=== PATIENT | male | born 1955 | race African-American/Black ===

== ENCOUNTER 2019-03-06 02:13 | Observation (INO) | payer BC ==
[2019-03-06 02:58] VITALS: BMI 25.5
--- NOTE | 2019-03-06 03:52 | PDOC ---
Attending Attestation - Resident Resident Name: ReyEverardo - ED Attending Attestation I have performed the following: I have examined & evaluated the patient, The case was reviewed & discussed with the resident, I agree w/resident's findings & plan - HPI HPI: 03/06/19 03:50 see resident hpi - Physicial Exam PE: 03/06/19 03:50 see with resident exam - Medical Decision Making 03/06/19 03:51 63-year-old male status post syncopal episode with collapse and fall while walking home from the [facility] Plan for labs, EKG Will admit for syncope evaluation
--- NOTE | 2019-03-06 03:53 | PDOC ---
History of Present Illness - General Chief Complaint: Injury Stated Complaint: FALL Time Seen by Provider: 03/06/19 03:50 History Source: Patient Exam Limitations: No Limitations - History of Present Illness Initial Comments: 03/06/19 07:43 63 yo M with a hx of Parkinson's Disease, HIV, and HTN presents to the emergency department s/p fall with LOC. Per the patient, he was walking in the parking lot at approximately 2 am after participating in activities [place] the local [place]. Per the patient, he felt his legs give way and remembered falling forward with LOC. Prior to his fall, he felt SOB but denies the following prodromal symptoms: palpitations, headache, nausea, vomiting, and lightheadedness. Upon re-awakening, the patient was on the ground and denies current pain. Allergies: NKDA Past History - Past Medical History Allergies/Adverse Reactions: Allergies Allergy/AdvReac Type Severity Reaction Status Date / Time No Known Allergies Allergy Verified 03/06/19 02:55 Home Medications: Ambulatory Orders Amantadine HCl [Symmetrel -] 100 mg PO BID 03/06/19 Bictegrav/Emtricit/Tenofov Ala [Biktarvy 50-200-25 mg Tablet] 1 each PO DAILY Carbidopa/Levodopa *Cr* 50/200 [Sinemet *Cr* 50/200 -] 1 combo PO QID 03/06/19 Carbidopa/Levodopa 25/100 [Sinemet 25/100 -] 1 each PO 5XD 03/06/19 Carvedilol [Coreg -] 12.5 mg PO BID 03/06/19 Vitamin B Complex 1 cap PO DAILY 03/06/19 - Psycho Social/Smoking Cessation Hx Smoking History: Never smoked Hx Alcohol Use: Yes Drug/Substance Use Hx: No Review of Systems - Review of Systems Able to Perform ROS?: Yes Is the patient limited Angolan proficient: No Constitutional: No: Chills, Diaphoresis, Fever, Weakness HEENTM: No: Eye Pain, Ear Pain, Nose Pain, Throat Pain, Mouth Pain Respiratory: No: Cough, Shortness of Breath, Hemoptysis Cardiac (ROS): Yes: Syncope. No: Chest Pain, Lightheadedness, Palpitations, Chest Tightness ABD/GI: No: Constipated, Diarrhea, Nausea, Rectal Bleeding, Vomiting, Tarry Stools : No: Burning, Dysuria, Hematuria Musculoskeletal: No: Back Pain, Joint Pain, Neck Pain Integumentary: No: Bruising, Erythema, Rash Neurological: Yes: Unsteady Gait (Parkinson's disease; chronic and uses a cane for ambulation assistance ). No: Headache, Seizure Psychiatric: No: Change in Appetite Endocrine: No: Unexplained Weight Loss Hematologic/Lymphatic: No: Anemia *Physical Exam - Vital Signs Last Vital Signs Temp Pulse Resp BP Pulse Ox 98.7 F 96 H 20 167/83 96 03/06/19 02:13 03/06/19 02:13 03/06/19 02:13 03/06/19 02:13 03/06/19 02:13 - Physical Exam General Appearance: Yes: Nourished, Appropriately Dressed. No: Apparent Distress, Alcohol on Breath, Intoxicated HEENT: positive: EOMI, NARENDRA, Normal Voice, Symmetrical, Pharynx Normal, Hearing Grossly Normal. negative: Pale Conjunctivae, Scleral Icterus (R), Scleral Icterus (L), Muffled/Hoarse voice, Pharyngeal Erythema, Tonsillar Exudate, Tonsillar Erythema, Excessive drooling Neck: positive: Trachea midline, Supple. negative: Tender, Lymphadenopathy (R) , Lymphadenopathy (L), Tender lateral, Tender midline Respiratory/Chest: positive: Lungs Clear, Normal Breath Sounds. negative: Chest Tender, Respiratory Distress, Accessory Muscle Use, Crackles, Rales, Rhonchi, Stridor, Wheezing Cardiovascular: positive: Regular Rhythm, Regular Rate, S1, S2. negative: Systolic Murmur Gastrointestinal/Abdominal: positive: Normal Bowel Sounds, Flat, Soft. negative : Tender, Distended, Guarding, Rebound Lymphatic: negative: Adenopathy Musculoskeletal: positive: Normal Inspection. negative: CVA Tenderness, Vertebral Tenderness Extremity: positive: Normal Capillary Refill, Normal Inspection. negative: Normal Range of Motion (patient has rigidity in the UE and LE bilaterally that can be elicited secondary to Parkinsons), Swelling, Calf Tenderness Integumentary: positive: Normal Color, Dry, Warm, Other (blisters noted on the LE bilaterally) Neurologic: positive: traffic observer II-XII NML intact, Fully Oriented, Alert, Normal Mood/ Affect, Normal Response, Motor Strength 5/5. negative: EOM Palsy, Facial Droop , Numbness, Sensory Deficit ED Treatment Course - LABORATORY CBC & Chemistry Diagram: 03/06/19 04:25 03/06/19 04:25 Medical Decision Making - Medical Decision Making 63 yo M with a hx of Parkinson's Disease, HIV, and HTN presents to the emergency department s/p fall with LOC. Per the patient, he was walking in the parking lot at approximately 2 am after participating in activities [place] [employer]. Initial vitals: Initial Vital Signs Temp Pulse Resp BP Pulse Ox 98.7 F 96 H 20 167/83 96 03/06/19 02:13 03/06/19 02:13 03/06/19 02:13 03/06/19 02:13 03/06/19 02:13 Work up: fall with syncope work up required. need to rule out cardiogenic vs metabolic vs infectious vs neurogenic Laboratory Tests 03/06/19 03/06/19 03/06/19 04:25 04:25 04:25 WBC 5.5 RBC 4.72 Hgb 15.5 Hct 44.2 MCV 93.6 MCH 32.8 MCHC 35.1 RDW 13.6 Plt Count 202 MPV 8.2 Absolute Neuts (auto) 3.8 Neutrophils % 68.9 Lymphocytes % 20.8 Monocytes % 9.3 Eosinophils % 0.4 Basophils % 0.6 Nucleated RBC % 0 Sodium 143 Cancelled Potassium 3.9 Cancelled Chloride 111 H Cancelled Carbon Dioxide 24 Cancelled Anion Gap 8 Cancelled BUN 14.7 Cancelled Creatinine 1.1 Cancelled Est GFR (CKD-EPI)AfAm 82.37 Cancelled Est GFR (CKD-EPI)NonAf 71.07 Cancelled Random Glucose 111 H Cancelled Calcium 9.2 Cancelled Magnesium 2.3 Cancelled Total Bilirubin 1.0 Cancelled AST 35 Cancelled ALT 53 Cancelled Alkaline Phosphatase 110 Cancelled Creatine Kinase 580 H Creatine Kinase Index 1.3 CK-MB (CK-2) 7.9 H Troponin I < 0.02 Total Protein 7.8 Cancelled Albumin 3.7 Cancelled TSH 0.82 Cancelled 03/06/19 03/06/19 04:25 04:25 WBC RBC Hgb Hct MCV MCH MCHC RDW Plt Count MPV Absolute Neuts (auto) Neutrophils % Lymphocytes % Monocytes % Eosinophils % Basophils % Nucleated RBC % Sodium Potassium Chloride Carbon Dioxide Anion Gap BUN Creatinine Est GFR (CKD-EPI)AfAm Est GFR (CKD-EPI)NonAf Random Glucose Calcium Magnesium Cancelled Total Bilirubin AST ALT Alkaline Phosphatase Creatine Kinase Creatine Kinase Index CK-MB (CK-2) Troponin I Total Protein Albumin TSH Cancelled labs within normal limits CXR within normal limits; no acute process appreciated Head CT and cervical spine CT negative for acute process per imaging director operations Patient was endorses to the hospitalist team and accepted for admission to tele obs for cardiac work up EKG: Negative for ST elevations or depression. Discharge - Discharge Information Problems reviewed: Yes Clinical Impression/Diagnosis: Syncope Condition: Fair - Follow up/Referral - Patient Discharge Instructions - Post Discharge Activity
[2019-03-06 04:49] LABS: BASO % 0.6 % (0-2.0); EOS % 0.4 % (0-4.5); HEMATOCRIT 44.2 % (35.4-49); HEMOGLOBIN 15.5 GM/dL (11.7-16.9); LYMPH % 20.8 % (8-40); MCH 32.8 pg (25.7-33.7); MCHC 35.1 g/dl (32.0-35.9); MEAN CELL VOLUME 93.6 fl (80-96); MEAN PLT VOLUME 8.2 fl (7.5-11.1); MONO % 9.3 % (3.8-10.2); NEUT % 68.9 % (42.8-82.8); PLATELET COUNT 202 K/MM3 (134-434); RBC 4.72 M/mm3 (4.00-5.60); RDW 13.6 % (11.9-15.9); WHITE BLOOD COUNT 5.5 K/mm3 (4.0-10.0)
[2019-03-06 05:28] LABS: ALBUMIN 3.7 g/dl (3.4-5.0); ALK PHOS 110 U/L (45-117); ANION GAP 8 MMOL/L (8-16); BLOOD UREA NITROGEN 14.7 mg/dL (7-18); CALCIUM 9.2 mg/dL (8.5-10.1); CHLORIDE 111 mmol/L (98-107); CO2 24 mmol/L (21-32); CREATININE 1.1 mg/dL (0.55-1.3); GLUCOSE,RANDOM 111 mg/dL (74-106); MAGNESIUM 2.3 mg/dL (1.8-2.4); POTASSIUM 3.9 mmol/L (3.5-5.1); SGOT/AST 35 U/L (15-37); SGPT/ALT 53 U/L (13-61); SODIUM 143 mmol/L (136-145); TOT PROT 7.8 g/dl (6.4-8.2)
[2019-03-06 08:17] LABS: PH,URINE 5.5 (5.0-8.0); URINE APPEARANCE CLEAR; URINE BILIRUBIN 1+ (NEGATIVE); URINE COLOR DK YELLOW; URINE GLUCOSE (UA) NEGATIVE (NEGATIVE); URINE KETONE 1+ (NEGATIVE); URINE LEUK ESTERASE NEGATIVE (NEGATIVE); URINE NITRITE NEGATIVE (NEGATIVE); URINE PROTEIN TRACE (NEGATIVE); URINE UROBILINOGEN 0.2 mg/dL (0.2-1.0)
--- NOTE | 2019-03-06 08:32 | PN ---
Teaching Attending Note Name of Resident: Cinthia Waddell ATTENDING PHYSICIAN STATEMENT I saw and evaluated the patient. I reviewed the resident's note and discussed the case with the resident. I agree with the resident's findings and plan as documented. SUBJECTIVE: OBJECTIVE: Vital Signs Temperature 98.7 F 03/06/19 02:13 Pulse Rate 96 H 03/06/19 02:13 Respiratory Rate 20 03/06/19 02:13 Blood Pressure 167/83 03/06/19 02:13 O2 Sat by Pulse Oximetry (%) 97 03/06/19 02:30 General: Middle-aged female, comfortable, not in distress HEENT; mucous membranes moist, no anemia, no jaundice, PERRLA, no nystagmus Neck: No JVD, supple, no bruit, thyroid palpably normal, normal carotid pulsations. Chest: Nontender, clear to auscultation bilaterally CVS: S1-S2 regular no murmur/gallop/rub Abdomen: Nondistended, soft, bowel sounds present. Extremities: No edema., No calf tenderness, pulses present IN STORE MARKETING REPRESENTATIVE: AO X3 , no gross motor sensory deficit CBC,CMP WBC 5.5 K/mm3 (4.0-10.0) 03/06/19 04:25 RBC 4.72 M/mm3 (4.00-5.60) 03/06/19 04:25 Hgb 15.5 GM/dL (11.7-16.9) 03/06/19 04:25 Hct 44.2 % (35.4-49) 03/06/19 04:25 MCV 93.6 fl (80-96) 03/06/19 04:25 MCH 32.8 pg (25.7-33.7) 03/06/19 04:25 MCHC 35.1 g/dl (32.0-35.9) 03/06/19 04:25 RDW 13.6 % (11.9-15.9) 03/06/19 04:25 Plt Count 202 K/MM3 (134-434) 03/06/19 04:25 MPV 8.2 fl (7.5-11.1) 03/06/19 04:25 Absolute Neuts (auto) 3.8 K/mm3 (1.5-8.0) 03/06/19 04:25 Neutrophils % 68.9 % (42.8-82.8) 03/06/19 04:25 Lymphocytes % 20.8 % (8-40) 03/06/19 04:25 Monocytes % 9.3 % (3.8-10.2) 03/06/19 04:25 Eosinophils % 0.4 % (0-4.5) 03/06/19 04:25 Basophils % 0.6 % (0-2.0) 03/06/19 04:25 Nucleated RBC % 0 % (0-0) 03/06/19 04:25 Sodium 143 mmol/L (136-145) 03/06/19 04:25 Potassium 3.9 mmol/L (3.5-5.1) 03/06/19 04:25 Chloride 111 mmol/L (98-107) H 03/06/19 04:25 Carbon Dioxide 24 mmol/L (21-32) 03/06/19 04:25 Anion Gap 8 MMOL/L (8-16) 03/06/19 04:25 BUN 14.7 mg/dL (7-18) 03/06/19 04:25 Creatinine 1.1 mg/dL (0.55-1.3) 03/06/19 04:25 Est GFR (CKD-EPI)AfAm 82.37 03/06/19 04:25 Est GFR (CKD-EPI)NonAf 71.07 03/06/19 04:25 Random Glucose 111 mg/dL (74-106) H 03/06/19 04:25 Calcium 9.2 mg/dL (8.5-10.1) 03/06/19 04:25 Magnesium 2.3 mg/dL (1.8-2.4) 03/06/19 04:25 Total Bilirubin 1.0 mg/dL (0.2-1) 03/06/19 04:25 AST 35 U/L (15-37) 03/06/19 04:25 ALT 53 U/L (13-61) 03/06/19 04:25 Alkaline Phosphatase 110 U/L (45-117) 03/06/19 04:25 Creatine Kinase 580 U/L (26-308) H 03/06/19 04:25 Creatine Kinase Index 1.3 % (0.0-5.0) 03/06/19 04:25 CK-MB (CK-2) 7.9 ng/mL (0.5-3.6) H 03/06/19 04:25 Troponin I < 0.02 ng/ml (0.00-0.05) 03/06/19 04:25 Total Protein 7.8 g/dl (6.4-8.2) 03/06/19 04:25 Albumin 3.7 g/dl (3.4-5.0) 03/06/19 04:25 TSH 0.82 uIU/ml (0.358-3.74) 03/06/19 04:25 EKG: Chest x-ray: CT C-spine: No acute fracture or subluxation CT head: No fracture and no acute intracranial changes. ASSESSMENT AND PLAN: 63 years old male history of HIV hypertension, Parkinson, walks with a cane, last night patient went to the kitchen around 2 AM he crossed A busy road to catch a taxi, walked with a fast pace , felt exhausted short of breath, developed weakness of lower extremity while turning left to gait ataxia and landed on the road, bystanders called 911 came to ED for evaluation, patient denies any chest pain, head trauma, seizure activity or incontinence, patient says this few months ago had similar situation when he was walking fast.. Impression: Presyncope/syncope Problem List - Problems (1) Syncope Assessment/Plan: Most likely due to autonomic insufficiency secondary to Parkinson, will observe on telemetry, echocardiogram if echo is abnormal will consider cardiology consult, PT evaluation. Orthostatic blood pressure Problems reviewed: Yes Code(s): R55 - SYNCOPE AND COLLAPSE (2) HIV (human immunodeficiency virus infection) Assessment/Plan: Resume all home medications Problems reviewed: Yes Code(s): B20 - HUMAN IMMUNODEFICIENCY VIRUS [HIV] DISEASE (3) Parkinson disease Assessment/Plan: Resume home medications Problems reviewed: Yes Code(s): G20 - PARKINSON'S DISEASE (4) Hypertension Assessment/Plan: Resume home medications Problems reviewed: Yes Code(s): I10 - ESSENTIAL (PRIMARY) HYPERTENSION
[2019-03-06] MEDS: SODIUM CHLORIDE 1,000 ML IV SCH (09:30)
[2019-03-06] MEDS ORDERED: AMANTADINE HCL 100 MG TABLET PO SCH (10:00)
[2019-03-06] MEDS ORDERED: CARBIDOPA/LEVODOPA 25/100 TABLET (FP) PO SCH (10:00)
[2019-03-06] MEDS ORDERED: CARVEDILOL 12.5 MG TABLET (FP) PO SCH (10:00)
[2019-03-06] MEDS ORDERED: BICTEGRAV/EMTRICIT/TENOFOV (BIKTARVY) 50-200-25 MG TABLET PO SCH (10:00)
[2019-03-06] MEDS ORDERED: HEPARIN NA (PORCINE) 5,000 UNITS/ML 1ML VIAL ONE (10:18)
[2019-03-06] MEDS: HEPARIN NA (PORCINE) 5,000 UNITS/ML 1ML VIAL SQ SCH ×2 (10:30→22:29)
--- NOTE | 2019-03-06 11:59 | HP ---
CHIEF COMPLAINT: fall HISTORY OF PRESENT ILLNESS: Charlene merino a 63 yo M with a PMHx of Parkinsons, HIV, presenting to the ED s/p fall. Patient says he was walking to his car at 2:30am [place] and felt his knees buckle, which caused him to fall. He said he already has a difficult time walking because of his Parkinsons and had to run across the highway yesterday to get to his car. As he was running, he said he took a turn to the left and felt his knees buckle. When he fell he said he blacked out. He said he had some shortness of breath before he fell because he was running. He said this never happened to him before. Patient denies headache, chest pain, nausea, vomiting, fevers, chills, dizziness, bladder or bowel incontinence ER course was notable for: (1) Head CT/C spine CT: unremarkable (2) CXR unremarkable Recent Travel: denies PAST MEDICAL HISTORY: per hpi Social History: Smoking: denie Alcohol: denies Drugs: denies Allergies No Known Allergies Allergy (Verified 03/06/19 02:55) HOME MEDICATIONS: Home Medications Medication Instructions Recorded Amantadine HCl [Symmetrel -] 100 mg PO BID 03/06/19 Bictegrav/Emtricit/Tenofov Ala 1 each PO DAILY 03/06/19 [Biktarvy 50-200-25 mg Tablet] Carbidopa/Levodopa *Cr* 50/200 1 combo PO QID 03/06/19 [Sinemet *Cr* 50/200 -] Carbidopa/Levodopa 25/100 [Sinemet 1 each PO 5XD 03/06/19 25/100 -] Carvedilol [Coreg -] 12.5 mg PO BID 03/06/19 Vitamin B Complex 1 cap PO DAILY 03/06/19 REVIEW OF SYSTEMS per hpi PHYSICAL EXAMINATION Vital Signs - 24 hr 03/06/19 03/06/19 03/06/19 02:13 02:30 07:30 Temperature 98.7 F 98.1 F Pulse Rate 96 H 85 Respiratory 20 18 Rate Blood Pressure 167/83 147/97 O2 Sat by Pulse 96 97 98 Oximetry (%) GENERAL: a/o x 3, in nad HEAD: Normal with no signs of trauma. EYES: Pupils equal, round and reactive to light EARS, NOSE, THROAT: oropharynx clear without exudates. NECK: supple without lymphadenopathy, JVD, or masses. LUNGS: lungs cta b/l HEART: RRR, +systolic murmu ABDOMEN: Soft, nontender, not distended, normoactive bowel sounds EXTREMITIES: 2+ pulses. No peripheral edema. UE, LE rigidity NEUROLOGICAL: Cranial nerves II-XII intact Laboratory Results - last 24 hr 03/06/19 03/06/19 03/06/19 04:25 04:25 04:25 WBC 5.5 RBC 4.72 Hgb 15.5 Hct 44.2 MCV 93.6 MCH 32.8 MCHC 35.1 RDW 13.6 Plt Count 202 MPV 8.2 Absolute Neuts (auto) 3.8 Neutrophils % 68.9 Lymphocytes % 20.8 Monocytes % 9.3 Eosinophils % 0.4 Basophils % 0.6 Nucleated RBC % 0 Sodium 143 Cancelled Potassium 3.9 Cancelled Chloride 111 H Cancelled Carbon Dioxide 24 Cancelled Anion Gap 8 Cancelled BUN 14.7 Cancelled Creatinine 1.1 Cancelled Est GFR (CKD-EPI)AfAm 82.37 Cancelled Est GFR (CKD-EPI)NonAf 71.07 Cancelled Random Glucose 111 H Cancelled Calcium 9.2 Cancelled Magnesium 2.3 Cancelled Total Bilirubin 1.0 Cancelled AST 35 Cancelled ALT 53 Cancelled Alkaline Phosphatase 110 Cancelled Creatine Kinase 580 H Creatine Kinase Index 1.3 CK-MB (CK-2) 7.9 H Troponin I < 0.02 Total Protein 7.8 Cancelled Albumin 3.7 Cancelled TSH 0.82 Cancelled Urine Color Urine Appearance Urine pH Ur Specific [place] Urine Protein Urine Glucose (UA) Urine Ketones Urine Blood Urine Nitrite Urine Bilirubin Urine Urobilinogen Ur Leukocyte Esterase 03/06/19 03/06/19 03/06/19 04:25 04:25 07:30 WBC RBC Hgb Hct MCV MCH MCHC RDW Plt Count MPV Absolute Neuts (auto) Neutrophils % Lymphocytes % Monocytes % Eosinophils % Basophils % Nucleated RBC % Sodium Potassium Chloride Carbon Dioxide Anion Gap BUN Creatinine Est GFR (CKD-EPI)AfAm Est GFR (CKD-EPI)NonAf Random Glucose Calcium Magnesium Cancelled Total Bilirubin AST ALT Alkaline Phosphatase Creatine Kinase Creatine Kinase Index CK-MB (CK-2) Troponin I Total Protein Albumin TSH Cancelled Urine Color Dk yellow Urine Appearance Clear Urine pH 5.5 Ur Specific [place] 1.029 Urine Protein Trace Urine Glucose (UA) Negative Urine Ketones 1+ H Urine Blood Negative Urine Nitrite Negative Urine Bilirubin 1+ H Urine Urobilinogen 0.2 Ur Leukocyte Esterase Negative ASSESSMENT/PLAN: 63 yo M with a PMHx of Parkinsons, HIV, presenting to the ED s/p fall. #s/p Mechanical Fall -fall likely from gait abnormalities 2/2 Parkinsons disease -patient was conscious when he fell, says his knees buckled. -fu echo -tele monitoring -PT #elevated CK -likely from fall -normal saline @ 42 #Parkinsons -cont home meds #HIV -con. home meds #FEN -normal saline -monitor -regular diet dispo: pending echo, PT Visit type - Emergency Visit Emergency Visit: Yes ED Registration Date: 03/06/19 Care time: The patient presented to the Emergency Department on the above date and was hospitalized for further evaluation of their emergent condition. - New Patient This patient is new to me today: Yes Date on this admission: 03/06/19 - Critical Care Critical Care patient: No ATTENDING PHYSICIAN STATEMENT I saw and evaluated the patient. I reviewed the resident's note and discussed the case with the resident. I agree with the resident's findings and plan as documented. SUBJECTIVE: OBJECTIVE: ASSESSMENT AND PLAN:
[2019-03-06] MEDS: CARVEDILOL 12.5 MG TABLET (FP) PO SCH ×2 (12:30→23:57)
[2019-03-06] MEDS: VITAMIN B COMP W-C 1 EA TABLET PO SCH (12:30)
[2019-03-06] MEDS: BICTEGRAV/EMTRICIT/TENOFOV (BIKTARVY) 50-200-25 MG TABLET PO SCH (12:30)
[2019-03-06] MEDS: CARBIDOPA/LEVODOPA 25/100 TABLET (FP) PO SCH ×3 (12:31→23:57)
--- NOTE | 2019-03-06 13:36 | ECHO ---
Name: LUZMA ALEXANDER Exam:Adult Echocardiogram Study Date: 03/06/2019 08:25 AM Age: 63 yrs Reason For Study: SYNCOPE Height: 71 in Weight: 183 lb BSA: 2.0 m2 MMode/2D Measurements & Calculations IVSd: 1.1 cm Ao root diam: 3.1 cm LVIDd: 4.0 cm LA dimension: 3.6 cm LVIDs: 2.8 cm LVPWd: 1.1 cm EDV(Teich): 68.5 ml LVOT diam: 2.0 cm ESV(Teich): 30.6 ml LAV (MOD-bp): 67.0 ml Doppler Measurements & Calculations MV E max дмитрий: 104.0 cm/sec Ao V2 max: 127.6 cm/sec MV A max дмитрий: 133.3 cm/sec Ao max P.5 mmHg MV E/A: 0.78 MV dec time: 0.08 sec KUN(V,D): 3.1 cm2 LV V1 max P.9 mmHg PA V2 max: 137.1 cm/sec LV V1 max: 121.7 cm/sec PA max P.5 mmHg Med Peak E' Дмитрий: 5.7 cm/sec PI Vmax: 158.8 cm/sec Med E/e': 18.4 Lat Peak E' Дмитрий: 5.7 cm/sec Lat E/e': 18.4 Procedure A two-dimensional transthoracic echocardiogram with color flow and Doppler was performed. Left Ventricle The left ventricular size, thickness and function are normal. The left ventricular ejection fraction is normal. E/A reversal consistent with but not diagnostic of poor LV compliance. The left ventricular w all motion is normal. Right Ventricle The right ventricle is normal in size and function. Atria Normal left and right atrial size and function. Mitral Valve There is mild mitral valve thickening. There is no mitral valve stenosis. There is trace to mild mitr al regurgitation. Tricuspid Valve There is mild tricuspid valve thickening. There is no tricuspid stenosis. There was insufficient TR d etected to calculate RV systolic pressure. Aortic Valve The aortic valve is normal in structure and function. No hemodynamically significant valvular aortic stenosis. No aortic regurgitation is present. Pulmonic Valve The pulmonic valve is not well visualized. There is no pulmonic valvular stenosis. Trace to mild pulm onic valvular regurgitation. Great Vessels The aortic root is normal size. Pericardium/Pleura There is no pericardial effusion. Interpretation Summary The left ventricular size, thickness and function are normal The left ventricular ejection fraction is normal. The left ventricular wall motion is normal. There was insufficient TR detected to calculate RV systolic pressure. There is trace to mild mitral regurgitation. E/A reversal consistent with but not diagnostic of poor LV compliance MD Sharad Cornell 03/06/2019 01:36 PM
--- NOTE | 2019-03-06 15:36 | EKG ---
Test Reason : Blood Pressure : / mmHG Vent. Rate : 086 BPM Atrial Rate : 086 BPM P-R Int : 166 ms QRS Dur : 076 ms QT Int : 368 ms P-R-T Axes : 053 054 042 degrees QTc Int : 440 ms POOR DATA QUALITY, INTERPRETATION MAY BE ADVERSELY AFFECTED NORMAL SINUS RHYTHM POSSIBLE LEFT ATRIAL ENLARGEMENT NONSPECIFIC T WAVE ABNORMALITY ABNORMAL ECG NO PREVIOUS ECGS AVAILABLE Confirmed by MD Alicia, Viet ([id number]) on 03/06/2019 3:36:24 PM Referred By: Confirmed By:Viet Vargas MD
[2019-03-06] MEDS ORDERED: PT OWN MED DRAWER 7, Y5N ONE (18:25)
[2019-03-06] MEDS: AMANTADINE HCL 100 MG TABLET PO SCH (18:46)
[2019-03-07] MEDS ORDERED: PT OWN MED DRAWER 7, Y5N ONE ×2 (06:31→11:41)
[2019-03-07] MEDS: AMANTADINE HCL 100 MG TABLET PO SCH ×2 (06:53→17:53)
[2019-03-07] MEDS: CARBIDOPA/LEVODOPA 25/100 TABLET (FP) PO SCH ×4 (06:53→23:46)
[2019-03-07] MEDS: SODIUM CHLORIDE 1,000 ML IV SCH (06:54)
[2019-03-07 07:18] LABS: BASO % 0.6 % (0-2.0); EOS % 0.9 % (0-4.5); HEMATOCRIT 40.8 % (35.4-49); HEMOGLOBIN 14.1 GM/dL (11.7-16.9); LYMPH % 28.3 % (8-40); MCH 32.7 pg (25.7-33.7); MCHC 34.6 g/dl (32.0-35.9); MEAN CELL VOLUME 94.3 fl (80-96); MEAN PLT VOLUME 8.3 fl (7.5-11.1); MONO % 11.5 % (3.8-10.2); NEUT % 58.7 % (42.8-82.8); PLATELET COUNT 185 K/MM3 (134-434); RBC 4.32 M/mm3 (4.00-5.60); RDW 13.4 % (11.9-15.9); WHITE BLOOD COUNT 5.3 K/mm3 (4.0-10.0)
[2019-03-07 07:40] LABS: BLOOD UREA NITROGEN 11.5 mg/dL (7-18); CALCIUM 8.1 mg/dL (8.5-10.1); CREATININE 0.9 mg/dL (0.55-1.3); MAGNESIUM 2.3 mg/dL (1.8-2.4); POTASSIUM 3.5 mmol/L (3.5-5.1); TOT PROT 6.5 g/dl (6.4-8.2)
--- NOTE | 2019-03-07 07:59 | PN ---
Teaching Attending Note Name of Resident: Cinthia Waddell ATTENDING PHYSICIAN STATEMENT I saw and evaluated the patient. I reviewed the resident's note and discussed the case with the resident. I agree with the resident's findings and plan as documented. SUBJECTIVE: No episode of syncope OBJECTIVE: Vital Signs Temperature 97.9 F 03/07/19 02:00 Pulse Rate 79 03/07/19 06:00 Respiratory Rate 18 03/07/19 06:00 Blood Pressure 148/92 03/07/19 06:00 O2 Sat by Pulse Oximetry (%) 98 03/06/19 18:00 General: Middle-aged male, comfortable, not in distress HEENT; mucous membranes moist, no anemia, no jaundice, PERRLA, no nystagmus Neck: No JVD, supple, no bruit, thyroid palpably normal, normal carotid pulsations. Chest: Non-tender, clear to auscultation bilaterally CVS: S1-S2 regular no murmur/gallop/rub Abdomen: Non-distended, soft, bowel sounds present. Extremities: No edema., No calf tenderness, pulses present CORRECTIONAL PROGRAM SPECIALIST: AO X3 , no gross motor sensory deficit CBC, BMP 03/07/19 05:50 03/07/19 05:50 EKG: Heart rate 86, W[place] interval 154 QTC 440 QRS 76 normal axis no acute ST-T changes Chest x-ray: CT C-spine: No acute fracture or subluxation CT head: No fracture and no acute intracranial changes. Echocardiogram: He had all normal ejection fraction ladle operator: No arrhythmia ASSESSMENT AND PLAN: 63 years old male history of HIV hypertension, Parkinson, walks with a cane, last night patient went to the kitchen around 2 AM he crossed A busy road to catch a taxi, walked with a fast pace , felt exhausted short of breath, developed weakness of lower extremity while turning left to gait ataxia and landed on the road, bystanders called 911 came to ED for evaluation, patient denies any chest pain, head trauma, seizure activity or incontinence, patient says this few months ago had similar situation when he was walking fast.. 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 Patient complaint of mild neck pain but no restriction of neck movement, Tylenol as needed Problem List - Problems (1) Syncope Assessment/Plan: Admitted with a fall, denies any loss of consciousness unlikely syncope most likely mechanical fall secondary to Parkinson and walking at a fast pace to cross the road, observed on telemetry, echocardiogram normal, no arrhythmia on calculating machine operator, evaluated by PT patient is able to ambulate more than 80 feet without any problem cleared to DC home. Code(s): R55 - SYNCOPE AND COLLAPSE (2) HIV (human immunodeficiency virus infection) Assessment/Plan: Resume all home medications Code(s): B20 - HUMAN IMMUNODEFICIENCY VIRUS [HIV] DISEASE (3) Parkinson disease Assessment/Plan: Resume home medications Code(s): G20 - PARKINSON'S DISEASE (4) Hypertension Assessment/Plan: Resume home medications Code(s): I10 - ESSENTIAL (PRIMARY) HYPERTENSION (5) Neck pain Assessment/Plan: Denies any restriction of movement, no neurological sign complaint of mild neck pain most likely musculoskeletal Problems reviewed: Yes Code(s): M54.2 - CERVICALGIA
[2019-03-07] MEDS: VITAMIN B COMP W-C 1 EA TABLET PO SCH (09:59)
[2019-03-07] MEDS: HEPARIN NA (PORCINE) 5,000 UNITS/ML 1ML VIAL SQ SCH ×2 (09:59→21:45)
--- NOTE | 2019-03-07 11:02 | DS ---
Physical Exam: SUBJECTIVE: Patient seen and examined. no events overnight. offers no complaints OBJECTIVE: Vital Signs Period Temp Pulse Resp BP Sys/العلي Pulse Ox Last 24 Hr 97.9 F-98.1 F 79-94 18-20 142-162/81-106 98-98 PHYSICAL EXAM GENERAL: a/o x 3, in nad HEAD: Normal with no signs of trauma. EYES: Pupils equal, round and reactive to light EARS, NOSE, THROAT: oropharynx clear without exudates. NECK: supple without lymphadenopathy, JVD, or masses. LUNGS: lungs cta b/l HEART: RRR, +systolic murmu ABDOMEN: Soft, nontender, not distended, normoactive bowel sounds EXTREMITIES: 2+ pulses. No peripheral edema. UE, LE rigidity LABS Laboratory Results - last 24 hr 03/07/19 03/07/19 05:50 05:50 WBC 5.3 RBC 4.32 Hgb 14.1 Hct 40.8 MCV 94.3 MCH 32.7 MCHC 34.6 RDW 13.4 Plt Count 185 MPV 8.3 Absolute Neuts (auto) 3.1 Neutrophils % 58.7 Lymphocytes % 28.3 D Monocytes % 11.5 H Eosinophils % 0.9 D Basophils % 0.6 Nucleated RBC % 0 Sodium 142 Potassium 3.5 Chloride 111 H Carbon Dioxide 23 Anion Gap 7 L BUN 11.5 Creatinine 0.9 Est GFR (CKD-EPI)AfAm 104.98 Est GFR (CKD-EPI)NonAf 90.58 Random Glucose 89 Calcium 8.1 L Phosphorus 3.0 Magnesium 2.3 Total Bilirubin 1.0 AST 28 ALT 10 L Alkaline Phosphatase 96 Total Protein 6.5 Albumin 3.0 L TSH 0.[address]/C spine CT: unremarkable CXR unremarkable HOSPITAL COURSE: Date of Admission:03/06/19 Patien tis a 63 yo M with a PMHx of Parkinsons, HIV, presenting to the ED s/p fall. Patient [place] felt his knees buckle, which caused him to fall. He said he already has a difficult time walking because of his Parkinsons and had to run across the highway yesterday to get to his car. As he was running, he said he took a turn to the left and felt his knees buckle. When he fell he said he blacked out. #s/p Mechanical Fall -fall likely from gait abnormalities 2/2 Parkinsons disease -not suspicious of any cardiac events. -Echo, EKG unremarkable. tele uneventful -Patient walked 80 feet with physical therapy. -medically cleared for discharge. Date of Discharge: 03/07/19 Minutes to complete discharge: 35 Discharge Summary Problems reviewed: Yes Reason For Visit: SYNCOPE Current Active Problems HIV (human immunodeficiency virus infection) (Acute) Hypertension (Acute) Parkinson disease (Acute) Syncope (Acute) Condition: Stable - Instructions Diet, Activity, Other Instructions: You were admitted because you fell. All of our testing came back normal. You will need to follow up with your primary care doctor in 1 week. We have not made any changes to your medications. Disposition: HOME - Home Medications Comprehensive Discharge Medication List: Ambulatory Orders Amantadine HCl [Symmetrel -] 100 mg PO BID 03/06/19 Bictegrav/Emtricit/Tenofov Ala [Biktarvy 50-200-25 mg Tablet] 1 each PO DAILY Carbidopa/Levodopa *Cr* 50/200 [Sinemet *Cr* 50/200 -] 1 combo PO QID 03/06/19 Carbidopa/Levodopa 25/100 [Sinemet 25/100 -] 1 each PO 5XD 03/06/19 Carvedilol [Coreg -] 12.5 mg PO BID 03/06/19 Vitamin B Complex 1 cap PO DAILY 03/06/19 This patient is new to me today: Yes Date on this admission: 03/07/19 Emergency Visit: Yes ED Registration Date: 03/06/19 Care time: The patient presented to the Emergency Department on the above date and was hospitalized for further evaluation of their emergent condition. Critical Care patient: No - Discharge Referral Referred to [facility] Med [facility] No ATTENDING PHYSICIAN STATEMENT I saw and evaluated the patient. I reviewed the resident's note and discussed the case with the resident. I agree with the resident's findings and plan as documented. SUBJECTIVE: OBJECTIVE: ASSESSMENT AND PLAN:
[2019-03-07] MEDS: CARVEDILOL 12.5 MG TABLET (FP) PO SCH ×2 (12:05→23:46)
[2019-03-07] MEDS: BICTEGRAV/EMTRICIT/TENOFOV (BIKTARVY) 50-200-25 MG TABLET PO SCH (12:07)
[2019-03-07] MEDS ORDERED: CYCLOBENZAPRINE HCL 5 MG TABLET PO ONE (21:11)
[2019-03-07] MEDS ORDERED: ACETAMINOPHEN 325 MG TABLET (FP) PO PRN ×2 (21:13→21:43)
[2019-03-07] MEDS ORDERED: CYCLOBENZAPRINE HCL 5 MG TABLET PO PRN (21:41)
[2019-03-08] MEDS: CARBIDOPA/LEVODOPA 25/100 TABLET (FP) PO SCH ×2 (05:56→12:15)
[2019-03-08] MEDS: AMANTADINE HCL 100 MG TABLET PO SCH (05:56)
[2019-03-08 06:03] VITALS: PULSE 82
--- NOTE | 2019-03-08 07:51 | PN ---
Progress Note, Physician Chief Complaint: Patient remained hemodynamically stable, mild neck pain but no neurological symptoms neck movements are full. History of Present Illness: 63 years old male history of HIV hypertension, Parkinson, walks with a cane, last night patient went to the kitchen around 2 AM he crossed A busy road to catch a taxi, walked with a fast pace , felt exhausted short of breath, developed weakness of lower extremity while turning left to gait ataxia and landed on the road, bystanders called 911 came to ED for evaluation, patient denies any chest pain, head trauma, seizure activity or incontinence, patient says this few months ago had similar situation when he was walking fast. 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 . - Current Medication List Current Medications: Active Medications Acetaminophen (Tylenol -) 650 mg PO Q6H PRN PRN Reason: PAIN LEVEL 7 - 10 Last Admin: 03/08/19 06:04 Dose: 650 mg Amantadine HCl (Symmetrel -) 100 mg PO BID@0600,1800 [facility] Last Admin: 03/08/19 05:56 Dose: 100 mg Bictegravir/Emtricitabine/Tenofovir (Biktarvy 50-200-25 Mg Tablet) 1 each PO DAILY@1200 [facility] Last Admin: 03/07/19 12:07 Dose: 1 each Carbidopa/Levodopa (Sinemet *Cr* 50/200 -) 1 combo PO Q6HPO [facility] Last Admin: 03/08/19 05:56 Dose: 1 combo Carbidopa/Levodopa (Sinemet 25/100 -) 1 each PO Q6HPO [facility] Last Admin: 03/08/19 05:56 Dose: 1 each Carvedilol (Coreg -) 12.5 mg PO BID@0001,1200 [facility] Last Admin: 03/07/19 23:46 Dose: 12.5 mg Cyclobenzaprine HCl (Cyclobenzaprine Hcl) 5 mg PO ONCE PRN PRN Reason: PAIN LEVEL 7 - 10 Heparin Sodium (Porcine) (Heparin -) 5,000 unit SQ BID [facility] Last Admin: 03/07/19 21:45 Dose: 5,000 unit Sodium Chloride (Normal Saline -) 1,000 mls @ 42 mls/hr IV ASDIR [facility] Last Admin: 03/07/19 06:54 Dose: 42 mls/hr Multivit/Ca Carb/B Cmplx/FA/Prenat (Nephro-Peri -) 1 tablet PO DAILY [facility] Last Admin: 03/07/19 09:59 Dose: 1 tablet - Objective Vital Signs: Vital Signs Temperature 98.6 F 03/07/19 22:00 Pulse Rate 82 03/08/19 06:00 Respiratory Rate 03/08/19 06:00 Blood Pressure 165/105 H 03/08/19 06:00 O2 Sat by Pulse Oximetry (%) 99 03/07/19 20:22 General: Middle-aged male, comfortable, not in distress HEENT; mucous membranes moist, no anemia, no jaundice, PERRLA, no nystagmus Neck: No JVD, supple, no bruit, thyroid palpably normal, normal carotid pulsations. Chest: Non-tender, clear to auscultation bilaterally CVS: S1-S2 regular no murmur/gallop/rub Abdomen: Non-distended, soft, bowel sounds present. Extremities: No edema., No calf tenderness, pulses present [employer]ACH[employer]: AO X3 , no gross motor sensory deficit Labs: CBC, BMP 03/07/19 05:50 03/07/19 05:50 Problem List - Problems (1) Syncope Assessment/Plan: Admitted with a fall, denies any loss of consciousness unlikely syncope most likely mechanical fall secondary to Parkinson and walking at a fast pace to cross the road, observed on telemetry, echocardiogram normal, no arrhythmia on school bus monitor, evaluated by PT patient is able to ambulate more than 80 feet without any problem cleared to [place] home. Code(s): R55 - SYNCOPE AND COLLAPSE (2) HIV (human immunodeficiency virus infection) Assessment/Plan: Resume all home medications Code(s): B20 - HUMAN IMMUNODEFICIENCY VIRUS [HIV] DISEASE (3) Parkinson disease Assessment/Plan: Resume home medications Code(s): G20 - PARKINSON'S DISEASE (4) Hypertension Assessment/Plan: Resume home medications Code(s): I10 - ESSENTIAL (PRIMARY) HYPERTENSION (5) Neck pain Assessment/Plan: Denies any restriction of movement, no neurological sign complaint of mild neck pain most likely musculoskeletal, evaluated by neurosurgery consult recommended no intervention, elective MRI can be performed as outpatient if symptoms persist. Code(s): M54.2 - CERVICALGIA Assessment/Plan Patient remained hemodynamically stable, some neck stiffness, evaluated by neurosurgery recommended no intervention at present if symptoms persist elective cervical MRI can be performed as outpatient. We will educate patient about it.
[2019-03-08] MEDS: HEPARIN NA (PORCINE) 5,000 UNITS/ML 1ML VIAL SQ SCH (10:19)
[2019-03-08] MEDS: VITAMIN B COMP W-C 1 EA TABLET PO SCH (10:19)
--- NOTE | 2019-03-08 11:06 | CONSULT ---
Consult - text type - Consultation Consultation Note: NEUROSURGERY CONSULTATION Rao Hernandez is a pleasant 63 year old male with a history of Parkinson's Disease and HIV who presented to the [facility] ED after a fall. He describes loss of consciousness but denies hitting his head. Head CT and Cervical Spine CT are negative for acute traumatic findings, although he has fairly considerable Cervical spondylosis. The patient currently denies dropping things from his hands, new neck pain or loss of fine motor skills. He has some paresthesias which have been attributed to his medications and PD. The patient is at his Neurological baseline and has no new complaints or deficits. No acute or traumatic findings. No acute Neurosurgical intervention indicated or planned. Semi elective MRI Cervical might be appropriate to evaluate further, although, this can be done as an outpatient.
[2019-03-08] MEDS ORDERED: PT OWN MED DRAWER 7, Y5N ONE (12:18)
[2019-03-08] MEDS: CARVEDILOL 12.5 MG TABLET (FP) PO SCH (12:19)
[2019-03-08 12:46] VITALS: BP 149/89; TEMP 98.9
== END 2019-03-08 14:40 | disposition home or self-care (01) ==
LOC: JER 02:13 → JERBED 06:47 → J4W 14:45
PROVIDERS: ADMIT Internal Medicine; ATTEND Internal Medicine
PROC: 3E013GC Introduction of Other Therapeutic Substance into Subcutaneous Tissue, Percutaneous Approach (ICD-10-PCS; principal; 2019-03-06)
PROC: 3E0337Z Introduction of Electrolytic and Water Balance Substance into Peripheral Vein, Percutaneous Approach (ICD-10-PCS; 2019-03-06)
DX: R55 Syncope and collapse (principal); B20 Human immunodeficiency virus [HIV] disease; G20 Parkinson's disease; I10 Essential (primary) hypertension; R79.89 Other specified abnormal findings of blood chemistry; M54.2 Cervicalgia; W18.39XA Other fall on same level, initial encounter; Y93.01 Activity, walking, marching and hiking; Y92.414 Local residential or business street as the place of occurrence of the external cause
CPT/HCPCS: 36415; 70450-TC; 71045-TC-FY; 72125-TC; 80053; 81003; 82550; 82553; 83735; 84100; 84443; 84484; 85025; 93005; 93010; 93306-TC; 96372; 97116-GP; 97161-GP; 99284-25; G0378; J1644; J7030